=== PATIENT | male | born 1980 | race Caucasian/White ===

== ENCOUNTER → 2020-06-13 | Outpatient (CLI) | payer BC ==
[~2020-06-13] MED LIST: CATHETER FLUSH 10 ML SYR IV PRN; HOLD METFORMIN - RECEIVED CONTRAST 20 ML VIAL IV SCH; IOHEXOL 350 MG/ML 100 ML (OMNIPAQUE 350) VIAL IV ONE; NS 100 ML (IVPB) BAG IV ONE
[2020-06-13 13:07] LABS: ALANINE AMINOTRANSFERASE 14 U/L (0-55); ALBUMIN 4.4 GM/DL (3.2-4.5); ALKALINE PHOSPHATASE 69 U/L (40-136); BILIRUBIN,TOTAL 0.5 MG/DL (0.1-1.0); BUN/CREATININE RATIO 9; CALCIUM 9.2 MG/DL (8.5-10.1); CARBON DIOXIDE 27 MMOL/L (21-32); CHLORIDE 107 MMOL/L (98-107); CREATININE SERUM 0.93 MG/DL (0.60-1.30); GFR ESTIMATED > 60; GLUCOSE 99 MG/DL (70-105); SODIUM 141 MMOL/L (135-145); TOTAL PROTEIN 7.2 GM/DL (6.4-8.2)
--- NOTE | 2020-06-13 15:15 | Diagnostic Imaging Report ---
PROCEDURE: CT maxillofacial with contrast. TECHNIQUE: After intravenous administration of contrast, axial images were obtained through the face and reformatted into coronal and sagittal planes. Auto Exposure Controls were utilized during the CT exam to meet ALARA standards for radiation dose reduction. INDICATION: Fall with injury to the right side of the face with redness, bruising and swelling. The mandible appears intact. There is a depressed fracture of the right zygomatic arch. There is also a fracture involving the anterior and lateral wall of the right maxillary sinus. There is also a fracture of the lateral wall of the right orbit. There is soft tissue gas in the right facial soft tissues. There is some fluid in the right maxillary sinus. Nasal bones are intact. Frontal, ethmoid and sphenoid sinuses are clear. Left maxillary sinus is clear. The mastoids are well aerated. No abnormal enhancement following contrast administration is seen. IMPRESSION: Multiple right-sided facial fractures, as described. Dictated by: Dictated on workstation # [id number]
== END ==
LOC: RAD 12:15
PROVIDERS: ATTEND Nurse Practitioner Family
DX: S02.40EA Zygomatic fracture, right side, initial encounter for closed fracture (principal); S02.19XA Other fracture of base of skull, initial encounter for closed fracture; S02.841A Fracture of lateral orbital wall, right side, initial encounter for closed fracture; S04.51XA Injury of facial nerve, right side, initial encounter; W19.XXXA Unspecified fall, initial encounter
CPT/HCPCS: 36415; 70487; 80053